=== PATIENT | male | born 1975 | race Caucasian/White ===

== ENCOUNTER → 2017-11-19 | Outpatient (CLI) | payer OTHER ==
[~2017-11-19] MED LIST: ACET-1256 PO; IBUP-103 PO
[2017-11-19 12:46] LABS: ALBUMIN 4.1 gm/dl (3.4-5.0); ALT/SGPT 41 U/L (12-78); AST/SGOT 20 U/L (15-37); BLOOD UREA NITROGEN 14 mg/dl (7-18); CALCIUM 9.2 mg/dl (8.5-10.1); CARBON DIOXIDE 28 mmol/L (21-32); CHOLESTEROL 212 mg/dl (0-200); CREATININE 1.12 mg/dl (0.60-1.40); GLUCOSE 105 mg/dl (70-99); SODIUM 139 mmol/L (136-145)
[2017-11-19 12:56] LABS: ALKALINE PHOSPHATASE 42 U/L (45-117); LDL CHOLESTEROL CALCULATED 157 mg/dl; TOTAL PROTEIN 7.6 gm/dl (6.4-8.2)
== END | disposition home or self-care (01) ==
LOC: C.LABBFT 10:32
PROVIDERS: ATTEND Nurse Practitioner
DX: E03.9 Hypothyroidism, unspecified (principal); E55.9 Vitamin D deficiency, unspecified; E78.5 Hyperlipidemia, unspecified

== ENCOUNTER → 2018-01-12 | Outpatient (CLI) | payer OTHER | END | disposition home or self-care (01) | LOC: C.PATHSPEC 17:56 | PROVIDERS: ATTEND Plastic Surgery | DX: L72.9 Follicular cyst of the skin and subcutaneous tissue, unspecified (principal) ==

== ENCOUNTER 2024-03-25 11:15 | Observation (INO) ==
[2024-03-25] MEDS: SODIUM CHLORIDE 0.9% 1,000 ML IV SCH (11:51)
--- NOTE | 2024-03-25 11:55 | XRay Report ---
XR chest 1V portable CLINICAL HISTORY: Sepsis TECHNIQUE: Single frontal radiograph of the chest was obtained. Comparison: None available at the time of this dictation. FINDINGS: No lines and tubes are seen. The cardiomediastinal silhouette is normal. Multifocal airspace opacitie s are seen. No evidence of pleural effusion or pneumothorax. IMPRESSION: Multifocal airspace opacities may represent atelectasis, pneumonia, and/or aspiration. ACT 112: Negative or not required by law. Electronically signed by: Trey Adams M.D. 03/25/2024 11:54 AM
[2024-03-25 11:56] LABS: Basophils # (auto) 0.03 K/uL (0.00-0.20); Basophils % (auto) 0.4 %; Eosinophils # (auto) 0.06 K/uL (0.00-0.50); Eosinophils % (auto) 0.7 %; Hematocrit (blood only) 47.7 % (42.0-52.0); Hemoglobin 16.8 g/dl (14.0-18.0); Immature Granulocytes # (auto) 0.03 K/uL (0.01-0.20); Immature Granulocytes % (auto) 0.4 %; Lymphocytes % (auto) 11.2 %; Mean Corpuscular Hemoglobin 31.1 pg (25.0-34.0); Mean Corpuscular Hgb Conc 35.2 g/dL (32.0-36.0); Mean Corpuscular Volume 88.2 fL (80.0-100.0); Mean Platelet Volume 11.2 fL (9.4-12.4); Monocytes # (auto) 0.53 K/uL (0.11-0.59); Monocytes % (auto) 6.6 %; Neutrophils # (auto) 6.51 K/uL (1.40-6.50); Neutrophils % (auto) 80.7 %; Platelet Count 178 K/uL (130-400); RDW Standard Deviation 41.8 fL (36.4-46.3); Red Blood Count 5.41 M/uL (4.70-6.10); White Blood Count 8.06 K/ul (4.8-10.8)
[2024-03-25 12:16] LABS: Albumin Level 4.3 gm/dl (3.4-5.0); BUN Creatinine Ratio 12.9 (10-20); Bilirubin Direct 0.1 mg/dl (0-0.2); Bilirubin,Total 0.7 mg/dl (0.2-1.0); Calcium 8.8 mg/dl (8.6-10.3); Creatinine Clr Calc Pharmacy 110.4 ml/min; Est GFR (African American) 102.2 ml/min; Est GFR (Non-African American) 88.2 ml/min; Potassium 3.5 mmol/L (3.5-5.1); Total Protein 7.5 gm/dl (6.0-8.3)
[2024-03-25] MEDS: cefTRIAXone SODIUM 2,000 MG/50 ML BAG IV STA (12:16)
[2024-03-25 12:22] LABS: Troponin I High Sensitivity 7.5 pg/ml (0-20)
[2024-03-25 12:24] LABS: Prothrombin Time 11.1 Seconds (9.0-12.0)
[2024-03-25] MEDS: DOXYCYCLINE HYCLATE 100 MG in DEXTROSE 5% MINI-B 100 ML IV STA (12:36)
--- NOTE | 2024-03-25 12:39 | Emergency Department Note ---
Impression & Plan Accidental acetaminophen overdose, Pneumonia ED Provider Note NAME: NOAH BAXTER AGE: 48 SEX: M : 1975 ARRIVES VIA: Walk-In INFORMANT: Patient, ED PROVIDER(S): Sergio Tamez MD CHIEF COMPLAINT: Fever, shortness of breath HPI: This is a 48-year-old male presenting for fever shortness of breath. Patient notes that for the past 7 days he has had a fever between 101 102. He notes cough that is painful. He notes left-sided chest pain. He notes gasping for air occasionally. He was seen outpatient and was given Keflex for his symptoms. He presents here with worsening symptoms. He notes he is also taking 3 tablets of extra strength acetaminophen every 4 hours for his fevers. This equates to about 9000 mg of Tylenol per day. Patient is not aware that he was using excess amounts of Tylenol. ROS: See above HPI for pertinent positives & negatives. A total of 10 systems reviewed and were otherwise negative. PHYSICAL EXAMINATION: General: resting comfortably in no acute distress Head: Normocephalic and atraumatic Eyes: Normal inspection, extraocular muscles intact Ear, nose, throat: Normal external exam Neck: Normal range of motion Respiratory: Rhonchi scattered bilaterally Cardiovascular: Regular rate/rhythm, no murmur GI: soft, nontender, no guarding or rebound Extremities: nontender, moves all extremities Neuro: The patient awake and alert, appropriately conversive, no focal deficits, symmetric faces Skin: Warm, dry, and intact MEDICAL DECISION MAKING: This is a 48-year-old male presenting with fever, shortness of breath and Tylenol overdose. -Chest x-ray as independent interpreted by me reveals multifocal airspace opacity concerning for pneumonia -Blood work is reviewed with no leukocytosis or anemia. Electrodes within normal limits. Surprisingly no transaminitis. Lactic 1.5. Significant levels currently 7. Procalcitonin elevated at 1 -Will give NAC at this time due to this over 9000 mg of Tylenol, almost 3 times daily max -Will give ceftriaxonelikely due to his multi airspace opacities concerning for pneumonia -Patient admitted due to his multifocal pneumonia, Tylenol overdose. Differential diagnosis: Pneumonia, upper respiratory infection, Tylenol overdose ER treatment provided: See below Diagnostics interpreted by me: ECG: ECG independently interpreted by me with sinus tachycardia, rate of 113, normal axis, normal UT, normal QRS, normal QTc, no ST segment elevations consistent with STEMI criteria Cardiac Monitoring: An order was placed for continuous cardiac monitoring. The monitor shows a rate of 115 with sinus tachycardia rhythm. Laboratory studies: As stated above and show below. Imaging studies: See below. Critical Care Note: I have personally spent 40 minutes of critical care time in the direct management of this patient. This includes bedside care, interpretation of diagnostic studies, and testing, discussion with consultants, patient, and family members, and other required patient management activities. This 40 minutes is in excess of all separately billable procedures. Past Med/Surg History Problem List (Updated 03/26/24 @ 19:50 by Sergio Tamez MD) Pneumonia (Acute) Accidental acetaminophen overdose (Acute) Hypertensive urgency Unintentional Tylenol overdose Multifocal pneumonia Tearing eyes History of tobacco use Chronic rhinitis Allergic rhinoconjunctivitis of both eyes Currently smokes tobacco Hypercholesteremia Hypothyroidism Polycythemia Vitamin D deficiency Obesity Hemorrhoids Medical History Allergic rhinoconjunctivitis of both eyes Chronic rhinitis History of tobacco use Hypertension Tearing eyes Surgical History H/O rotator cuff surgery History of ankle surgery Family History Unknown Hypertension Diabetes Cardiovascular disease Grandfather (Maternal) Myocardial infarction Grandmother (Maternal) Myocardial infarction Denies family history of Ovarian cancer Prostate cancer Breast cancer Colorectal cancer Social History Smoking Status: Former smoker Second Hand Exposure: No; Do You Dip or Chew Tobacco: No; Hx Alcohol Use: No Hx Substance Use: No Preferred Language: Ethiopian Communication Ability: Effective Visual Impairment: No Limitations Hearing Ability: Normal Wrecker Driver Required: No Beliefs That Will Affect Care: None Current Living Situation: Spouse current occupational status: employed Feels Safe at Home: Yes Allergies Allergies Allergy/AdvReac Type Severity Reaction Status Date / Time codeine AdvReac Intermediate GI UPSET Verified 03/02/23 20:33 Home Meds Home Medications Medication Instructions Recorded Confirmed multivitamin 1 tab PO QAM 03/25/24 03/25/24 Previous Rx's Medication Instructions Recorded doxycycline hyclate 100 mg tablet 100 mg PO BID 7 days #14 tabs 03/25/24 Results & Data (ED) Vital Signs Vital Signs - 24 hr 03/25/24 11:17 03/25/24 12:30 03/25/24 12:38 Temperature 37.3 C Temperature Source Oral Pulse Rate 110 H 103 H Pulse Rate [Finger] 103 H Pulse Rhythm Regular Pulse Rhythm [Finger] Regular Pulse Strength [Finger] Normal Respiratory Rate 18 18 Respiratory Effort / Characteristics Non-Labored Respiratory Depth Normal Respiratory Pattern Regular Blood Pressure 168/103 H Blood Pressure [Left Arm] 135/77 Blood Pressure Mean 124 Blood Pressure Mean [Left Arm] 96 Blood Pressure Position [Left Arm] Lying Pulse Oximetry 94 95 96 Oxygen Delivery Method Room Air Room Air Room Air Sepsis Recent Fever Within 48 Hours Yes Sepsis New/Unexplained Change in Mental Status No Sepsis Action Taken by Nursing No Action Required Laboratory Data 03/25/24 11:30 03/25/24 11:30 Lab Results 03/25/24 03/25/24 03/25/24 Range/Units 11:30 11:46 13:00 WBC 8.06 (4.8-10.8) K/ul RBC 5.41 (4.70-6.10) M/uL Hgb 16.8 (14.0-18.0) g/dl Hct 47.7 (42.0-52.0) % MCV 88.2 (80.0-100.0) fL MCH 31.1 (25.0-34.0) pg MCHC 35.2 (32.0-36.0) g/dL RDW Std Deviation 41.8 (36.4-46.3) fL RDW Coeff of Romy 13.0 (11.5-14.5) % Plt Count 178 (130-400) K/uL MPV 11.2 (9.4-12.4) fL Immature Gran % (Auto) 0.4 % Neut % (Auto) 80.7 % Lymph % (Auto) 11.2 % Major % (Auto) 6.6 % Eos % (Auto) 0.7 % Baso % (Auto) 0.4 % Neut # (Auto) 6.51 H (1.40-6.50) K/uL Lymph # (Auto) 0.90 L (1.20-3.40) K/uL Major # (Auto) 0.53 (0.11-0.59) K/uL Eos # (Auto) 0.06 (0.00-0.50) K/uL Baso # (Auto) 0.03 (0.00-0.20) K/uL Immature Gran # (Auto) 0.03 (0.01-0.20) K/uL PT 11.1 (9.0-12.0) Seconds INR 1.0 (0.9-1.1) Sodium 136 (136-145) mmol/L Potassium 3.5 (3.5-5.1) mmol/L Chloride 98 (98-107) mmol/L Carbon Dioxide 29 (21-32) mmol/L Anion Gap 9 (3-11) BUN 13 (6-23) mg/dl Creatinine 1.01 (0.6-1.4) mg/dl Est Cr Clr Drug Dosing 110.4 ml/min Est GFR ( Amer) 102.2 ml/min Est GFR (Non-Af Amer) 88.2 ml/min BUN/Creatinine Ratio 12.9 (10-20) Glucose 111 H (70-99(Fasting)) mg/dl Lactate 1.5 (0.4-2.0) mmol/L Calcium 8.8 (8.6-10.3) mg/dl Magnesium 2.0 (1.7-2.4) mg/dl Total Bilirubin 0.7 (0.2-1.0) mg/dl Direct Bilirubin 0.1 (0-0.2) mg/dl AST 37 (13-39) U/L ALT 43 (7-52) U/L Alkaline Phosphatase 76 (34-104) U/L Troponin I High Sens 7.5 (0-20) pg/ml Total Protein 7.5 (6.0-8.3) gm/dl Albumin 4.3 (3.4-5.0) gm/dl Procalcitonin 1.03 H (0-0.5) ng/ml Acetaminophen 7 L (10-30) ug/ml Adenovirus (PCR) Not Detected (NotDetected) B. pertussis DNA (PCR) Not Detected (NotDetected) B.parapertussis DNA PCR Not Detected (NotDetected) C. pneumoniae DNA (PCR) Not Detected (NotDetected) Coronavirus OC43 (PCR) Not Detected (NotDetected) Coronavirus HKU1 (PCR) Not Detected (NotDetected) Coronavirus 229E (PCR) Not Detected (NotDetected) SARS-CoV-2 (PCR) Not Detected (NotDetected) Coronavirus NL63 (PCR) Not Detected (NotDetected) Human Metapneumovir PCR Not Detected (NotDetected) Influenza Type A (PCR) Not Detected (NotDetected) Influenza Type B (PCR) Not Detected (NotDetected) M. pneumoniae (PCR) DETECTED A (NotDetected) Parainfluenza 1 (PCR) Not Detected (NotDetected) Parainfluenza 2 (PCR) Not Detected (NotDetected) Parainfluenza 3 (PCR) Not Detected (NotDetected) Parainfluenza 4 (PCR) Not Detected (NotDetected) RSV (PCR) Not Detected (NotDetected) Entero/Rhino (PCR) Not Detected (NotDetected) Administered Medications Discontinued Medications Acetylcysteine (Acetylcysteine Iv 21 Hr Regimen (>40kg)) 1 each IV NOW STA; Protocol Stop: 03/25/24 12:07 Last Admin: 03/25/24 14:21 Dose: Not Given Documented By: JUAN Diphenhydramine HCl (Diphenhydramine 50 Mg/Ml Vial) 50 mg IV NOW STA Stop: 03/25/24 14:50 Last Admin: 03/25/24 14:59 Dose: 50 mg Documented By: JUAN Hydralazine HCl (Hydralazine Hcl 20 Mg/Ml Vial) 5 mg IV NOW ONE Stop: 03/25/24 14:41 Last Admin: 03/25/24 14:46 Dose: 5 mg Documented By: JUAN Hydralazine HCl (Hydralazine Hcl 20 Mg/Ml Vial) 5 mg IV NOW ONE Stop: 03/25/24 15:05 Last Admin: 03/25/24 17:45 Dose: Not Given Documented By: LUH Sodium Chloride (Nss) 1,000 mls @ 999 mls/hr IV .Q1H1M MCKAY Stop: 03/25/24 12:45 Last Infusion: 03/25/24 12:38 Dose: Infused Documented By: Admin: 03/25/24 11:51 Dose: 999 mls/hr Documented By: JUAN Acetylcysteine 5,000 mg/ (Dextrose) 525 mls @ 125 mls/hr IV ONCE ONE; Protocol Stop: 03/25/24 17:19 Last Admin: 03/25/24 17:39 Dose: Not Given Documented By: LUH Acetylcysteine 15,000 mg/ (Dextrose) 275 mls @ 200 mls/hr IV ONCE ONE; Protocol Stop: 03/25/24 13:29 Last Infusion: 03/25/24 14:51 Dose: Infused Documented By: Admin: 03/25/24 12:46 Dose: 200 mls/hr Documented By: JAUN Ceftriaxone Sodium (Rocephin) 2,000 mg in 50 mls @ 100 mls/hr IV NOW STA Stop: 03/25/24 12:37 Last Infusion: 03/25/24 12:36 Dose: Infused Documented By: Admin: 03/25/24 12:16 Dose: 100 mls/hr Documented By: JUAN Doxycycline Hyclate 100 mg/ (Dextrose) 100 mls @ 50 mls/hr IV NOW STA Stop: 03/25/24 14:07 Last Infusion: 03/25/24 14:51 Dose: Infused Documented By: Admin: 03/25/24 12:36 Dose: 50 mls/hr Documented By: JUAN Famotidine (Pepcid 20mg Iv Push) 20 mg in 5 mls @ 2.5 mls/min IV NOW STA Stop: 03/25/24 14:50 Last Admin: 03/25/24 15:03 Dose: 2.5 mls/min Documented By: JUAN Azithromycin 500 mg/ Dextrose 255 mls @ 127.5 mls/hr IV Q24H [facility] Stop: 03/27/24 15:39 Last Admin: 03/25/24 17:38 Dose: Not Given Documented By: LUH Ibuprofen (Ibuprofen 200 Mg Tab) 400 mg PO Q4H PRN PRN Reason: Pain or Fever Stop: 04/24/24 14:26 Last Admin: 03/25/24 14:49 Dose: 400 mg Documented By: JUAN Levalbuterol HCl (Levalbuterol 1.25 Mg/3 Ml Neb) 1.25 mg NEB NOW STA Stop: 03/25/24 13:34 Last Admin: 03/25/24 14:53 Dose: 1.25 mg Documented By: JUAN Levalbuterol HCl (Levalbuterol Hcl 0.63 Mg/3 Ml Neb) 0.63 mg NEB Q8R MCKAY; Protocol Stop: 04/24/24 15:03 Last Admin: 03/25/24 15:41 Dose: Not Given Documented By: ENEDINA Methylprednisolone (Methylprednisolone 125 Mg/2 Ml Vial) 125 mg IV NOW STA Stop: 03/25/24 14:50 Last Admin: 03/25/24 14:55 Dose: 125 mg Documented By: JUAN Miscellaneous (Stat Iv/Im) 1 each N/A NOW STA Stop: 03/25/24 12:07 Last Admin: 03/25/24 14:21 Dose: Not Given Documented By: JUAN Imaging Data Radiologist's Impression: Chest X-Ray 03/25/24 11:38 XR chest 1V portable CLINICAL HISTORY: Sepsis TECHNIQUE: Single frontal radiograph of the chest was obtained. Comparison: None available at the time of this dictation. FINDINGS: No lines and tubes are seen. The cardiomediastinal silhouette is normal. Multifocal airspace opacities are seen. No evidence of pleural effusion or pneumothorax. IMPRESSION: Multifocal airspace opacities may represent atelectasis, pneumonia, and/or aspiration. ACT 112: Negative or not required by law. Electronically signed by: Trey Adams M.D. 03/25/2024 11:54 AM Discharge Plan Visit Data Chief Complaint: Illness Stated Complaint: FEVER FOR A WEEK, CONGESTED, SOB ED Provider: Sergio Tamez Discharge Problem: Accidental acetaminophen overdose, Pneumonia Patient Disposition: Admitted As Inpatient Discharge Instructions Interventions: ED Discharge Assessment Last Done: 03/25/24 16:17
[2024-03-25] MEDS: AcetylCYSTEINE 15,000 MG in DEXTROSE 5% 200 ML IV ONE (12:46)
--- NOTE | 2024-03-25 13:12 | History & Physical Report ---
Date of Service March 25, 2024 Assessment & Plan (1) Unintentional Tylenol overdose: Plan: Acute/stable - Admit to med/surg under hospitalist service - IV NAC protocol initiated in the ER, continue protocol with serial lab monitoring - Literature recommends serial LFTs, INR, and Acetaminophen level q12h, next set due at 1800 - Ibuprofen will be utilized for fever/pain (2) Multifocal pneumonia: Plan: Acute/unstable - Inappropriately treated by patient with medication, inappropriate dose and antibiotic choice for PNA - Continue Rocephin and Doxycycline for atypical coverage - Give a stat dose of Methylprednisolone (further dosing at discretion of attending) and a Xopenex neb treatment now - Monitor O2, provide supplemental O2 if pulse ox <90% - Add Mucinex 600mg BID and Tessalon perles 100mg TID prn cough - Continue Xopenex neb treatments q8 routine (3) Hypertensive urgency: Plan: Acute/unstable - History of HTN which is untreated - BP 168/110 initially, repeat 152/104 mmHg - Give a dose of IV Hydralazine 5mg x1 now and monitor BP - Consider starting low dose Lisinopril or other first line antihypertensive if BP remains uncontrolled (4) Currently smokes tobacco: Plan: Chronic - Smoked 1/2 ppd on and off x 15 years - Counseled on importance of cessation as this increases his risk of PNA - Declines nicotine patch Plan Above plan of care has been d/w Dr. Olivarez who will also see and evaluate this patient. Further orders will be implemented as warranted by attending. History of Present Illness Chief Complaint: "Illness" Primary Care Provider: Hortencia Campbell MD Handy is a 48 yo M with a pmhx of HTN, chronic allergies, obesity and tobacco use who presents to the ER today for evaluation of persistent illness and fever. He reports that he began with chest congestion and fever last Thursday. He denies ill contacts. He notes that the symptoms have been progressively worse and he began taking Keflex that he had left over at his house. The dose was 250mg three times a day, and he was taking large quantities of Tylenol during this time as well. He notes that it was the only thing that would "break his fever." He believes that he was taking around ~9,000mg of Tylenol per day. His last dose of Tylenol was this morning. His w/u in the ER demonstrated a normal wbc count with low grade fever. His lactate is normal but his procalcitonin is elevated at 1.03. His Tylenol level, INR, and LFTs are normal. His viral panel is pending. CXR showed multifocal pneumonia. He was started on the N-Acetylcysteine protocol for APAP overdose and given a dose of IV Rocephin and Doxycycline for his pneumonia. He has been referred for observation under medical service for further care. Allergies Allergy/AdvReac Type Severity Reaction Status Date / Time codeine AdvReac Intermediate GI UPSET Verified 03/02/23 20:33 Home Medications Medication Instructions Recorded Confirmed Type multivitamin 1 tab PO QAM 03/25/24 03/25/24 History Past Med/Surg History Problem List (Updated 03/25/24 @ 13:35 by Linda Oliveira PA-C) Hypertensive urgency Unintentional Tylenol overdose Multifocal pneumonia Tearing eyes History of tobacco use Chronic rhinitis Allergic rhinoconjunctivitis of both eyes Currently smokes tobacco Hypercholesteremia Hypothyroidism Polycythemia Vitamin D deficiency Obesity Hemorrhoids Medical History Allergic rhinoconjunctivitis of both eyes Chronic rhinitis History of tobacco use Hypertension Tearing eyes Surgical History H/O rotator cuff surgery History of ankle surgery Family History Unknown Hypertension Diabetes Cardiovascular disease Grandfather (Maternal) Myocardial infarction Grandmother (Maternal) Myocardial infarction Denies family history of Ovarian cancer Prostate cancer Breast cancer Colorectal cancer Social History Smoking Status: Former smoker Hx Alcohol Use: Yes Communication Ability: Effective Visual Impairment: No Limitations Hearing Ability: Normal current occupational status: employed Feels Safe at Home: Yes Review of Systems 2 Review of Systems: All systems reviewed and are unremarkable except as noted in HPI and below. Denies sore throat, chest pain, shortness of breath, palpitations, orthopnea, PND, abdominal pain, n/v/d, constipation, dysuria, hematuria, frequency, back pain, joint pain or swelling, easy bruising or bleeding, skin lesions or rashes. Physical Exam 2 Physical Exam: GENERAL: 48 yo well-nourished middle aged WM. NAD. EYES: EOMI. PERRLA. Anicteric. HENT: Moist mucous membranes. No scleral icterus. No cervical lymphadenopathy. LUNGS: Nonlabored with wheezes and rhonchi appreciated throughout. CARDIOVASCULAR: Regular rate and rhythm. No M/G/R. No JVD. ABDOMEN: Soft, non-tender and non-distended. No palpable masses. Bowel sounds normoactive x 4 quad. EXTREMITIES: No edema. Non-tender. Peripheral pulses +2/4. NEUROLOGIC: A&O x3. No focal neurological deficits. CN II-XII grossly intact. PSYCHIATRIC: Cooperative. Appropriate mood and affect. SKIN: Warm, dry, intact. Facial flushing observed. No rashes or lesions. Results & Data Results & Data Vital Signs (Past 12 Hours) Vital Signs Temp Pulse Resp BP Pulse Ox O2 Del Method 03/25/24 11:17 37.3 C 110 H 18 168/103 H 94 Room Air Laboratory Results 03/25/24 11:30 03/25/24 11:30 Diagnostic Findings Chest X-Ray 03/25/24 11:38 XR chest 1V portable CLINICAL HISTORY: Sepsis TECHNIQUE: Single frontal radiograph of the chest was obtained. Comparison: None available at the time of this dictation. FINDINGS: No lines and tubes are seen. The cardiomediastinal silhouette is normal. Multifocal airspace opacities are seen. No evidence of pleural effusion or pneumothorax. IMPRESSION: Multifocal airspace opacities may represent atelectasis, pneumonia, and/or aspiration. ACT 112: Negative or not required by law. Electronically signed by: Trey Adams M.D. 03/25/2024 11:54 AM EKG: sinus tachycardia Code Status & VTE Plan VTE Prophylaxis Plan VTE Prophylaxis will be ordered: No Reason for no VTE drug order: Drug intolerance Supervising Physician Co-Signing Physician Notes I personally examined the patient and verified all polanco points of history and exam, discussed case, and agree with decision making with Ila Oliveira PA-C feels terrible. Feverish. Cough and shortness of breath. Vitals noted, in general he appears uncomfortable red and flushed. Does not appear super dyspneic more just uncomfortable from the fever. Does have periodic cough. Mucous membranes moist. lungs show scattered rhonchi and wheezes predominantly on the right although a little bit more diminished on the left. No accessory muscle use good effort no conversational dyspnea is 95% on room air. Community-acquired pneumoniaprobable sepsis present on admission (tachycardic I do not see a documented fever on the chart yet, but he looks like he has had fevers and I anticipate he probably will in the next 24 hours)apparently was self-medicating with a fairly low-dose of cephalexin. Agree with ceftriaxone and doxycycline. Given that the anti-inflammatory effect will hopefully help him feel better faster agree with the initial dose of steroid would hold off on further steroid unless he truly develops much wheezing. Continue ibuprofen as needed fever or aches. Discussed the anticipated catarrhal phase of the pneumonia. Discussed that it would likely take a few days for things to truly turn around. Otherwise as above. Excess Tylenol ingestionaccidental. Fortunately INR, bilirubin, transaminases all reassuring. ER started N-acetylcysteine which is reasonable. Continue to follow. Follow-up labs in a.m. to be complete. DVT proph - lovenox otherwise as above PG Care Time/CCT Total # of Minutes Spent Total Time Spent with Patient: Total time spent is greater than 50% in coordination of care (as documented) at patient's floor/unit and/or counseling patient: 75 minutes including the face to face, chart review, review of labs and medications, discussion with ER provider and pharmacist, writing orders, documentation in EHR Coding Level of Care Code 97192 INT INP/OBS CARE 3/75MIN Diagnoses Accidental acetaminophen overdose, initial encounter T39.1X1A Encounter type: initial encounter Multifocal pneumonia J18.9 Hypertensive urgency I16.0 Currently smokes tobacco F17.200 (1) Unintentional Tylenol overdose Encounter type: initial encounter Qualified Code(s): T39.1X1A - Poisoning by 4-Aminophenol derivatives, accidental (unintentional), initial encounter
[2024-03-25 14:14] LABS: Adenovirus PCR Not Detected (NotDetected); Bordetella parapertussis PCR Not Detected (NotDetected); Bordetella pertussis PCR Not Detected (NotDetected); Chlamydia pneumoniae PCR Not Detected (NotDetected); Coronavirus 229E PCR Not Detected (NotDetected); Coronavirus CoV-2 (COVID19)PCR Not Detected (NotDetected); Coronavirus HKU1 PCR Not Detected (NotDetected); Coronavirus NL63 PCR Not Detected (NotDetected); Coronavirus OC43PCR Not Detected (NotDetected); Human Metapneumovirus PCR Not Detected (NotDetected); Influenza A PCR Not Detected (NotDetected); Influenza B PCR Not Detected (NotDetected); Mycoplasma pneumoniae PCR DETECTED (NotDetected); Parainfluenza Virus 1 PCR Not Detected (NotDetected); Parainfluenza Virus 2 PCR Not Detected (NotDetected); Parainfluenza Virus 3 PCR Not Detected (NotDetected); Parainfluenza Virus 4 PCR Not Detected (NotDetected); Respiratory Syncytial VirusPCR Not Detected (NotDetected); Rhinovirus/Enterovirus PCR Not Detected (NotDetected)
[2024-03-25] MEDS: STAT IV/IM STA (14:21)
[2024-03-25] MEDS: AcetylCYSTEINE IV 21 HR REGIMEN (>40KG) IV STA (14:21)
[2024-03-25] MEDS: hydrALAZINE HCL 20 MG/ML VIAL IV ONE ×2 (14:46→17:45)
[2024-03-25] MEDS: IBUPROFEN 200 MG TAB PO PRN (14:49)
[2024-03-25] MEDS: LEVALBUTEROL 1.25 MG/3 ML NEB NEB STA (14:53)
[2024-03-25] MEDS: methylPREDNISolone 125 MG/2 ML VIAL IV STA (14:55)
[2024-03-25] MEDS: diphenhydrAMINE 50 MG/ML VIAL IV STA (14:59)
[2024-03-25] MEDS: FAMOTIDINE 20MG IV PUSH 20 MG/5 ML SYR IV STA (15:03)
[2024-03-25] MEDS ORDERED: ALUMINUM/MAGNESIUM SUSP 30 ML UDC PO PRN (15:04)
[2024-03-25] MEDS ORDERED: IBUPROFEN 200 MG TAB PO PRN (15:04)
[2024-03-25] MEDS ORDERED: ONDANSETRON INJ 2 MG/ML 2 ML VIAL IV PRN (15:04)
[2024-03-25] MEDS ORDERED: BENZONATATE 100 MG CAPSULE PO PRN (15:04)
[2024-03-25] MEDS ORDERED: MAGNESIUM HYDROXIDE SUSP 30 ML UDC PO PRN (15:04)
[2024-03-25] MEDS ORDERED: POLYETHYLENE (MIRALAX) 17 GM PACK PO PRN (15:04)
[2024-03-25] MEDS ORDERED: methylPREDNISolone 125 MG/2 ML VIAL IV STA (15:04)
[2024-03-25] MEDS: LEVALBUTEROL HCL 0.63 MG/3 ML NEB NEB SCH (15:41)
[2024-03-25] MEDS ORDERED: AcetylCYSTEINE 10,000 MG in DEXTROSE 5% 1,000 ML IV ONE (17:07)
--- NOTE | 2024-03-25 17:10 | Communication Note ---
Date of Service: March 25, 2024 Patient developed some mild edema of his bilateral ears and severe facial flushing as well as erythema of his upper back. His NAC was stopped. Poison control was contacted and they felt that based on his laboratory findings that he did not require treatment with NAC. Will obtain APAP level, PT/INR, and CMP in AM to check levels. Poison control instructed to call back with any abnormalities in AM labs. In addition, his Mycoplasma pneumoniae PCR came back positive. Rocephin has been discontinued and he will be continued on Doxycycline. Was contacted by nurse shortly after patient arrived to the floor, he was requesting to leave AMA. Paperwork signed and I sent his Doxycycline 100mg bid x 7 days prescription to complete for his atypical pneumonia. Pt counseled on risks of leaving and he verbalized understanding.
[2024-03-25] MEDS: AZITHROMYCIN 500 MG in DEXTROSE 5% 250 ML IV SCH (17:38)
[2024-03-25] MEDS: AcetylCYSTEINE 5,000 MG in DEXTROSE 5% 500 ML IV ONE (17:39)
[2024-03-25] MEDS ORDERED: guaiFENesin 600 MG TABCR PO SCH (21:00)
[2024-03-25] MEDS ORDERED: DOXYCYCLINE HYCLATE 100 MG in DEXTROSE 5% MINI-B 100 ML IV SCH (23:00)
--- NOTE | 2024-03-25 23:17 | Electrocardiogram Report ---
Test Reason : Blood Pressure : / mmHG Vent. Rate : 113 BPM Atrial Rate : 113 BPM P-R Int : 138 ms QRS Dur : 086 ms QT Int : 336 ms P-R-T Axes : 060 055 048 degrees QTc Int : 460 ms Sinus tachycardia Otherwise normal ECG When compared with ECG of 16-AUG-2018 12:43, No significant change was found Confirmed by Henrique Wolf ([id number]) on 03/25/2024 11:16:59 PM Referred By: Confirmed By:Henrique Wolf
[2024-03-26] MEDS ORDERED: ENOXAPARIN INJ 40 MG/0.4 ML SYR SQ SCH (09:00)
[2024-03-26] MEDS ORDERED: cefTRIAXone SODIUM 2,000 MG/50 ML BAG IV SCH (12:00)
== END 2024-03-25 18:33 | disposition left against medical advice (07) ==
LOC: ED 11:15 → EDINP 11:15 → 3N 15:05